=== PATIENT | female | born 1975 ===

== ENCOUNTER 2018-05-06 09:49 | Day surgery (SDC) | payer SELFPAY ==
[2018-04-15 10:51] VITALS: BMI 24.8
[~2018-05-06 09:49] MED LIST: Midazolam 2 MG/2 ML VIAL ONE; Neostigmine Methylsulfate 3mg/3ml Syringe IV ONE; Propofol 10 mg/ml Inj (20 ML) ONE
[2018-05-06] MEDS ORDERED: cefOXitin IV 2 gm in Dextrose 2 GM/50 ML BAG IVPB ONE (10:44)
[2018-05-06] MEDS ORDERED: Bupivacaine HCl 0.5% PF (30 ml) Inj ONE (10:44)
[2018-05-06] MEDS ORDERED: Methylene Blue 10 mg/mL(10ml) IV ONE (11:41)
--- NOTE | 2018-05-06 12:34 | PCM.SURG1 ---
Surgeon's Initial Post Op Note - Surgeon's Notes Surgeon: Dr. Galindo Can Striper: Dr. Penaloza Type of Anesthesia: General Endo Anesthesia Administered By: Dr. Bravo Pre-Operative Diagnosis: 43 yo with Chronic pelvic pain, Irregular mentrual cycle , menorrhagia Operative Findings: Av uterus , multiple adhesion, Bilateral tubes blocked, Right paratubal cyst , Left fimbria attached to the small bowel Post-Operative Diagnosis: Blocked bilateral tubes , Multiple adhesion , right paratubal cyst Operation Performed: Laparoscopy , Chemotubation , lysis of adhesion , Fractional D and C Specimen/Specimens Removed: EMC, ECC Estimated Blood Loss: EBL {In ML}: 5 Blood Products Given: N/A Drains Used: No Drains Post-Op Condition: Good Date of Surgery/Procedure: 05/06/18 Time of Surgery/Procedure: 12:34
[2018-05-06] MEDS ORDERED: Lactated Ringer's 1,000 ML IV ONE (15:10)
[2018-05-06 15:31] VITALS: RESP 16; O2SAT 100
[2018-05-06 16:34] VITALS: BP 106/53; PULSE 76; TEMP 97.6
--- NOTE | 2018-05-07 01:06 | OP ---
PROCEDURE DATE: 05/06/2018 PREOPERATIVE DIAGNOSIS: A 43-year-old female with chronic pelvic pain, menorrhagia, irregular menstrual period, and failure of medical therapy. POSTOPERATIVE FINDINGS: Anteverted uterus with multiple adhesions, bilateral tubes were demonstrated to be blocked by chromotubation and a right paratubal cyst. PROCEDURES: Laparoscopy, chromotubation, lysis of adhesions, and fractional dilation and curettage. SURGEON: Lorena Galindo MD ADVERTISING ACCOUNT MANAGER: Shad Penaloza MD TYPE OF ANESTHESIA: General endotracheal. ANESTHESIOLOGIST: Dr. Davila COMPLICATIONS: None. ESTIMATED BLOOD LOSS: 5 mL. INTRAVENOUS FLUID: 1 L. URINE OUTPUT: 400 mL. SPECIMEN: EMC and ECC. DESCRIPTION OF PROCEDURE: The patient was informed of the risk factor, benefits, and alternatives of the procedure. Risks factors included infection, bleeding, damage to the surrounding organs and tissues, complication from anesthesia, and possible . All risk factors were explained to the patient. Risk factors were explained but not limited to, and all questions were answered and informed consent was obtained. Once the consent was obtained, she was then taken to the operating room, prepped and draped in the normal sterile fashion, placed in dorsal lithotomy position. In that particular instance, a weighted speculum was placed into the vagina. The anterior lip of the cervix was grasped with single-toothed tenaculum. The uterus was gently sounded to approximately 8 cm. Upon complete uterine dilation, a fractional D and C was performed, and specimen was submitted to Pathology. In that particular instance, after completion of excellent hemostasis, HUMI was then advanced in order to manipulate the uterus. Once that was completed, all instruments were removed from the vagina. Attention was then turned to the umbilical fold where a 5-mm incision was made with a knife with a 15-blade. The optic trocar was utilized and entered directly under direct visualization. Upon entering confirming by the laparoscope, 4 L of CO2 gas was given. Another port was placed in the right lower quadrant under direct visualization. In that particular instance, the survey of the cavity demonstrated she had an anteverted uterus, small leiomyomas and multiple adhesions. The left tube was attached to the small bowel as well. It was noted that she had a right paratubal cyst. Chromotubation was then performed, which demonstrated the bilateral tubes were blocked. Lysis of adhesions was performed and excellent hemostasis. Upon completion, all instruments were removed from the abdomen. The skin was closed with a 3-0 Monocryl. Excellent hemostasis was noted. The HUMI was then removed from the vagina. Instruments and lap count were correct x2. The patient was then taken to the recovery room in stable condition and instructed to follow up in the office in approximately two weeks. Lorena Galindo MD
== END 2018-05-06 16:30 | disposition home or self-care (01) ==
LOC: C.SDS 09:49
PROVIDERS: ATTEND Obstetrics & Gynecology
DX: N84.0 Polyp of corpus uteri (principal); N94.9 Unspecified condition associated with female genital organs and menstrual cycle; N83.8 Other noninflammatory disorders of ovary, fallopian tube and broad ligament; G89.29 Other chronic pain; N92.0 Excessive and frequent menstruation with regular cycle; N73.6 Female pelvic peritoneal adhesions (postinfective); N97.1 Female infertility of tubal origin
CPT/HCPCS: 58120; 58350; 58660; 88305; J0694; J2250; J2704; J2710; J3010; J7120